=== PATIENT | male | born 1955 | race Two or more races ===

== ENCOUNTER 2022-12-04 11:45 | Inpatient (IN) | payer OTHER ==
[~2022-12-04] VITALS: Ht 264.2 cm; Wt 81.6 kg
[2022-12-09] MEDS ORDERED: OMEPRAZOLE20 MG (08:09)
[2022-12-09] MEDS ORDERED: ATENOLOL-CHLOR1 EACH (08:09)
[2022-12-09] MEDS ORDERED: LEVOTHYROXINE25 MC1 (08:09)
[2022-12-09] MEDS ORDERED: LEVOCETIRIZINE D5 MG (08:09)
[2022-12-09] MEDS ORDERED: ALLERGY RELIEF10 MG (08:09)
[2022-12-09] MEDS ORDERED: MONTELUKAST SOD10 MG (08:09)
[2022-12-09] MEDS ORDERED: B COMPLEX WITH1 EAC1 (08:10)
[2022-12-09] MEDS ORDERED: COLACE100 MG PO (09:49)
[2022-12-09] MEDS ORDERED: NEURONTIN800 MG PO (09:49)
[2022-12-09] MEDS ORDERED: PERCOCET 5-3251 EACH PO (09:50)
[2022-12-09] MEDS ORDERED: AMOX-CLAV 875-1 EACH PO (09:50)
[2022-12-09] MEDS ORDERED: MEDROLPACK PO (09:50)
== END 2022-12-11 11:54 | disposition home health service (06) | DRG 455 ==
LOC: O/R 12-09 05:35 → PED 12-09 05:35 → SURH 12-09 11:45 → PED 12-09 13:52
PROVIDERS: ADMIT Orthopaedic Surgery Orthopaedic Surgery of the Spine; ATTEND Orthopaedic Surgery Orthopaedic Surgery of the Spine
PROC: 0SG1071 Fusion of 2 or more Lumbar Vertebral Joints with Autologous Tissue Substitute, Posterior Approach, Posterior Column, Open Approach (ICD-10-PCS; 2022-12-09)
PROC: 0ST20ZZ Resection of Lumbar Vertebral Disc, Open Approach (ICD-10-PCS; 2022-12-09)
PROC: 07DR0ZZ Extraction of Iliac Bone Marrow, Open Approach (ICD-10-PCS; 2022-12-09)
PROC: XRGC0R7 Fusion of 2 or more Lumbar Vertebral Joints using Custom-Made Anatomically Designed Interbody Fusion Device, Open Approach, New Technology Group 7 (ICD-10-PCS; principal; 2022-12-09 12:00)
DX: M48.062 Spinal stenosis, lumbar region with neurogenic claudication (principal); M41.56 Other secondary scoliosis, lumbar region; M51.36 Other intervertebral disc degeneration, lumbar region; I10 Essential (primary) hypertension; E03.9 Hypothyroidism, unspecified

== ENCOUNTER 2025-07-07 12:30 | Inpatient (IN) | payer OTHER ==
[~2025-07-07] VITALS: Ht 180.3 cm; Wt 83.9 kg
[~2025-07-07 12:30] MED LIST: ALLERGY RELIEF10 MG; AMOX-CLAV 875-1 EACH PO; ATENOLOL-CHLOR1 EACH; B COMPLEX WITH1 EAC1; COLACE100 MG PO; LEVOCETIRIZINE D5 MG; LEVOTHYROXINE25 MC1; MEDROLPACK PO; MONTELUKAST SOD10 MG; NEURONTIN800 MG PO; OMEPRAZOLE20 MG; PERCOCET 5-3251 EACH PO
[2025-07-07] MEDS ORDERED: TENORMIN25 MG PO (13:34)
[2025-07-07 14:23] LABS: COVID-19 AG NEGATIVE (NEGATIVE)
[2025-07-07 15:11] VITALS: BP 163/87
[2025-07-14] MEDS ORDERED: VANCOMYCIN HCL 1,000 MG VIAL ONE ×2 (07:26→08:29)
[2025-07-14] MEDS ORDERED: CEFAZOLIN SODIUM 1,000 MG VIAL ONE ×2 (07:26→17:26)
[2025-07-14] MEDS ORDERED: METHYLPREDNISOLONE ACETATE 80 MG/ML VIAL ONE (08:29)
[2025-07-14] MEDS ORDERED: HEMOSTATIC MATRIX WITH THROMBIN KIT TOP ONE ×2 (08:30→10:00)
[2025-07-14] MEDS ORDERED: METHYLPREDNISOLONE SOD SUCC 125 MG VIAL ONE (08:52)
[2025-07-14] MEDS ORDERED: MEDROLPACK PO (09:34)
[2025-07-14] MEDS ORDERED: PERCOCET 5-3251 EACH PO (09:34)
[2025-07-14] MEDS ORDERED: ONDANSETRON ODT8 MG PO (09:35)
[2025-07-14] MEDS ORDERED: COLACE100 MG PO (09:35)
[2025-07-14] MEDS ORDERED: VANCOMYCIN HCL 1,000 MG VIAL SPEPROC ONE (10:00)
[2025-07-14] MEDS ORDERED: VANCOMYCIN HCL 1,000 MG VIAL IR ONE (10:00)
[2025-07-14] MEDS ORDERED: CEFAZOLIN SODIUM 1,000 MG VIAL IV ONE (10:00)
[2025-07-14] MEDS ORDERED: METHYLPREDNISOLONE ACETATE 80 MG/ML VIAL IM ONE (10:00)
[2025-07-14] MEDS ORDERED: VANCOMYCIN HCL 1,000 MG VIAL IV ONE (10:00)
[2025-07-14] MEDS ORDERED: METHYLPREDNISOLONE SOD SUCC 125 MG VIAL IV ONE (10:00)
[2025-07-14] MEDS ORDERED: TRANEXAMIC ACID 100MG/1ML (1000MG) AMPUL ONE (10:46)
[2025-07-14] MEDS ORDERED: MORPHINE SULFATE 4 MG/ML VIAL IV ONE (12:45)
[2025-07-14] MEDS ORDERED: PROMETHAZINE HCL 50 MG/ML AMPUL IM PRN (17:00)
[2025-07-14] MEDS ORDERED: MORPHINE SULFATE 4 MG/ML CARTRIDGE IV SCH (17:00)
[2025-07-14] MEDS ORDERED: ENALAPRILAT DIHYDRATE 1.25 MG/ML VIAL IV PRN (17:00)
[2025-07-14] MEDS ORDERED: CEFAZOLIN SODIUM 1,000 MG in 0.9 % SODIUM CHLORIDE 50 ML IV SCH (17:00)
[2025-07-14] MEDS ORDERED: DOCUSATE SODIUM 100MG CAP PO SCH (17:00)
[2025-07-14] MEDS ORDERED: 0.9 % SODIUM CHLORIDE 1,000 ML IV SCH (17:00)
[2025-07-14] MEDS ORDERED: METHYLPREDNISOLONE SOD SUCC 125 MG VIAL IV SCH (17:00)
[2025-07-14 18:10] VITALS: BP 163/87; O2SAT 97
[2025-07-14] MEDS ORDERED: ACETAMINOPHEN 500 MG GEL..CAP PO SCH (20:00)
[2025-07-14] MEDS ORDERED: VANCOMYCIN HCL 1,000 MG VIAL IV SCH (21:00)
[2025-07-15] VITALS: BP 153/80; O2SAT 97
[2025-07-15] MEDS ORDERED: SODIUM CHLORIDE 0.45 % 1,000 ML IV SCH
[2025-07-15 04:00] VITALS: BP 131/63; O2SAT 96
[2025-07-15] MEDS ORDERED: LEVOTHYROXINE SODIUM 25 MCG TABLET PO SCH (06:00)
[2025-07-15] MEDS ORDERED: OxyCODONE HCL 5 MG TABLET (ROXICODONE) PO PRN (06:01)
[2025-07-15] MEDS ORDERED: CEFAZOLIN SODIUM 1,000 MG VIAL ONE (07:24)
[2025-07-15 08:25] VITALS: BP 123/70; O2SAT 97
[2025-07-15] MEDS ORDERED: TAMSULOSIN HCL 0.4 MG CAP PO SCH (09:00)
[2025-07-15] MEDS ORDERED: ATENOLOL 25 MG TABLET PO SCH (09:00)
[2025-07-15 12:36] VITALS: BP 125/62; O2SAT 98
== END 2025-07-15 12:27 | disposition home or self-care (01) | DRG 473 ==
LOC: PED 07-14 07:00 → O/R 07-14 07:00 → SURH 07-14 10:45 → PED 07-14 13:41
PROVIDERS: ADMIT Orthopaedic Surgery Orthopaedic Surgery of the Spine; ATTEND Orthopaedic Surgery Orthopaedic Surgery of the Spine
PROC: 0RT30ZZ Resection of Cervical Vertebral Disc, Open Approach (ICD-10-PCS; 2025-07-14)
PROC: 07DS0ZZ Extraction of Vertebral Bone Marrow, Open Approach (ICD-10-PCS; 2025-07-14)
PROC: 0PB30ZZ Excision of Cervical Vertebra, Open Approach (ICD-10-PCS; 2025-07-14)
PROC: 4A11X4G Monitoring of Peripheral Nervous Electrical Activity, Intraoperative, External Approach (ICD-10-PCS; 2025-07-14)
PROC: 0RG20A0 Fusion of 2 or more Cervical Vertebral Joints with Interbody Fusion Device, Anterior Approach, Anterior Column, Open Approach (ICD-10-PCS; principal; 2025-07-14 10:45)
DX: M50.022 Cervical disc disorder at C5-C6 level with myelopathy (principal); M50.023 Cervical disc disorder at C6-C7 level with myelopathy; I10 Essential (primary) hypertension